=== PATIENT | male | born 1965 | race Caucasian/White ===

== ENCOUNTER 2022-04-17 09:24 | Outpatient (RCR) | payer OTHER, SELFPAY ==
--- NOTE | 2022-04-17 10:28 | PCOTNOTE ---
SEATING EVALUATION NOTIFICATION This is to notify provider that Williams Hathaway ( 1965) participated in a manual mobility device evaluation today.? Recommendations were made specific to patient's needs.? Seating Assessment documentation has been completed for detailed information on required equipment. The mobility device provider for this case is Ramon Muhammad with [facility].? Please note that no further care plan will be developed on this account. ? ? [facility].? Please review, sign, date and return this discharge summary MAXIMILIANO. I have been updated about the patient's current status and I agree with discharge from the above service at this time. ?Referring Physician? Date Referring Provider: Christen Kasper NP
== END 2022-04-17 14:51 | disposition home or self-care (01) ==
LOC: ANHOT 09:24
DX: Z46.89 Encounter for fitting and adjustment of other specified devices (principal); Z89.511 Acquired absence of right leg below knee
CPT/HCPCS: 97165

== ENCOUNTER 2022-05-01 13:08 | Outpatient (CLI) | payer OTHER, SELFPAY ==
--- NOTE | ~2022-05-01 | CT_ITS ---
EXAMINATION: CT lung screening DATE: 05/01/2022 13:32 INDICATION: Personal history of nicotine dependence, current smoker with 100 to pack year history TECHNIQUE: Computed tomography (CT) of the chest was performed without intravenous contrast. The dose -length product (DLP) was 72.07 mGy-cm. Automated exposure control and iterative reconstruction techn [employer] were employed. COMPARISON: None FINDINGS: There is mild emphysema. No suspicious pulmonary nodules are identified. The lungs are free of acute opacities. No pleural effusion or pneumothorax. No pathologically enlarged thoracic lymph n odes are identified. The heart size is normal. Calcified coronary artery atherosclerosis is noted. Th ere is mild thoracic spondylosis. IMPRESSION: 1. Lung-RADS category 1: Negative. Continue annual screening with noncontrast low-dose chest CT in 12 months. Reviewed, dictated and finalized at location B. IMPRESSION: 1. Lung-RADS category 1: Negative. Continue annual screening with noncontrast l ow-dose chest CT in 12 months.
[2022-05-01 14:30] VITALS: PULSE 86; O2SAT 96
[2022-05-01 14:35] VITALS: PULSE 98; O2SAT 97
[2022-05-01 14:45] VITALS: PULSE 83; O2SAT 95
--- NOTE | 2022-05-01 15:10 | HOMEO2EVAL ---
Evaluation was performed at [facility] Home Oxygen Evaluation RC: Home Oxygen (O2) Evaluation Start: 05/01/22 15:08 Freq: Status: Active Protocol: RPE Activity Type Activity Date Activity User E-sign Co-sign Detail Recorded Client Recorded Date Recorded By Document 05/01/22 14:30 TAURUS [id number] 05/01/22 15:10 TAURUS Document 05/01/22 14:35 TAURUS [id number] 05/01/22 15:10 TAURUS Document 05/01/22 14:45 TAURUS [id number] 05/01/22 15:10 TAURUS 05/01/22 05/01/22 05/01/22 14:30 14:35 14:45 Home O2 Evaluation Test Phase Resting Exercise Resting Oxygen Delivery Room Air Room Air Room Air Pulse Oximetry (90-100 %) 96 97 95 Pulse Rate (60-100 beats/min) 86 98 83 Activity Tolerance Good Ambulation Distance (feet) 600 Ambulation Distance (meters) 182.87 Home Oxygen Evaluation Comments No home O2 required at this time. Treatment Charges O2 Evaluation - Outpatient
--- NOTE | 2022-05-01 17:09 | P.PCNPFT_ITS ---
PFT Procedure Performed PFT Procedure Performed Spirometry with Pre/Post Bronchodilator Plethysmography (Lung Vol) Flow Vol Loop PFT Interpretation This is a pulmonary function test with pre and post-bronchodilator spirometty and plethysmography. The test was performed and results interpreted in accordance with the 2019 and 2005 ATS/ERS Task Force guidelines respectively using the Global Lung Function Initiative-2012 reference equations. Patient demonstrated good effort and cooperation. Reproducibility criteria were met. The quality of the pre bronchodilator spirometry maneuver was Grade B and post bronchodilator spirometry maneuver was Grade A. Of note the patient was unable to perform the DLCO maneuver. Findings: Spirometry: There is decreased maximal expiratory airflow at all lung volumes with concave expiratory flow tracing. The contour the inspiratory flow tracing is flattened. The pre bronchodilator FVC is 4.01 L, 88% predicted. The pre bronchodilator FEV1 is 2.69 L, 75% predicted. The pre bronchodilator FEV1: FVC ratio 67%. The post bronchodilator FVC is 4.48 L, representing a 12% increase. The post bronchodilator FEV1 is 3.13 L, 16% predicted. The post bronchodilator FEV1: FVC ratio is 70%. Plethysmography: The total lung capacity is 6.93 L, 105% predicted. function al residual capacity is 4.13 L, 123% predicted. The residual volume is 2.92 L, 145% predicted Impression: Flattening of the inspiratory flow tracing is seen with variable extrathoracic obstruction. This has been described with vocal cord paralysis, structural or functional vocal fold abnormalities, extrathoracic tracheomalacia, polychondritis, mobile tumors, and laryngomalacia. Clinical correlation is recommended. There is a mild obstructive abnormality with significant improvement after inhaling a single dose of albuterol. The increase in residual volume is consistent with air trapping from an obstructive abnormality. There are no prior studies for comparison
== END 2022-05-01 13:09 | disposition home or self-care (01) ==
PROVIDERS: Visit Provider Internal Medicine Pulmonary Disease
DX: J44.9 Chronic obstructive pulmonary disease, unspecified (principal); R06.00 Dyspnea, unspecified; Z87.891 Personal history of nicotine dependence; Z12.2 Encounter for screening for malignant neoplasm of respiratory organs
CPT/HCPCS: 71271; 94060; 94618; 94726

== ENCOUNTER 2023-02-06 09:54 | Emergency (ER) | payer OTHER, SELFPAY ==
[2023-02-06 10:00] VITALS: BP 116/81; PULSE 91; RESP 16; TEMP 37.3; O2SAT 99
[2023-02-06 10:13] VITALS: BP 116/81; PULSE 91; RESP 16; TEMP 37.3; O2SAT 99
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
== END 2023-02-06 11:18 | disposition home or self-care (01) ==
PROVIDERS: Emergency Provider Nurse Practitioner Family; PCP Family Medicine
DX: T24.202A Burn of second degree of unspecified site of left lower limb, except ankle and foot, initial encounter (principal); W29.2XXA Contact with other powered household machinery, initial encounter; F17.210 Nicotine dependence, cigarettes, uncomplicated; Z79.82 Long term (current) use of aspirin; F41.9 Anxiety disorder, unspecified; J44.9 Chronic obstructive pulmonary disease, unspecified; Z89.511 Acquired absence of right leg below knee
CPT/HCPCS: 99213; G0463

== ENCOUNTER 2023-05-21 10:50 | Outpatient (CLI) | payer OTHER, SELFPAY ==
--- NOTE | ~2023-05-21 | CT_ITS ---
EXAMINATION: CT lung screening DATE: 05/21/2023 11:30 INDICATION: Personal history of nicotine dependence, current smoker with 20 pack year history TECHNIQUE: Computed tomography (CT) of the chest was performed without intravenous contrast. The dose -length product (DLP) was 69.64 mGy-cm. Automated exposure control and iterative reconstruction techn [employer] were employed. COMPARISON: 05/01/2022 FINDINGS: There is mild emphysema. No suspicious pulmonary nodules are identified. The lungs are free of acute opacities. No pleural effusion or pneumothorax. No pathologically enlarged thoracic lymph n odes are identified. The heart size is normal. There is mild thoracic spondylosis. Calcified coronary artery atherosclerosis is noted. IMPRESSION: 1. Lung-RADS category 1: Negative. Continue annual screening with noncontrast low-dose chest CT in 12 months. Reviewed, dictated and finalized at location L. IMPRESSION: 1. Lung-RADS category 1: Negative. Continue annual screening with noncontrast l ow-dose chest CT in 12 months.
== END 2023-05-21 10:51 | disposition home or self-care (01) ==
PROVIDERS: Visit Provider Nurse Practitioner Family
DX: Z12.2 Encounter for screening for malignant neoplasm of respiratory organs (principal); F17.210 Nicotine dependence, cigarettes, uncomplicated
CPT/HCPCS: 71271

== ENCOUNTER 2025-02-02 11:19 | Outpatient (CLI) | payer OTHER, SELFPAY ==
--- NOTE | ~2025-02-02 | CT_ITS ---
CT Scan of the Chest without Contrast: Clinical Indication: Lung cancer screening, nicotine dependence Technique: Contiguous sections were acquired throughout the chest without intravenous contrast. Dose reduction technique was used on this scan by utilizing automated exposure control and iterative recon struction technique. The dose-length product (DLP) was 74.25 mGy-cm. COMPARISON: 05/21/2023 Findings: There is no evidence of any significant mediastinal, hilar or axillary lymphadenopathy. The mediastin al soft tissues appear normal. There is no evidence of pleural or pericardial effusion. Mild paraseptal emphysema present. No pulmonary nodule seen. Images through the upper abdomen reveal no abnormalities. Impression: Lung RADS 1: Negative. 12 month follow-up screening CT advised. Reviewed, dictated and finalized at location . Impression: Lung RADS 1: Negative. 12 month follow-up screening CT advised.
== END 2025-02-02 11:20 | disposition home or self-care (01) ==
PROVIDERS: PCP Internal Medicine; Visit Provider Nurse Practitioner Family
DX: Z12.2 Encounter for screening for malignant neoplasm of respiratory organs (principal); Z87.891 Personal history of nicotine dependence
CPT/HCPCS: 71271